=== PATIENT | female | born 1980 | race Caucasian/White ===

== ENCOUNTER 2017-12-17 08:10 | Inpatient (IN) | payer OTHER ==
[2017-12-17 08:33] LABS: ADD MAN DIFF? NO
[2017-12-17 08:35] LABS: WHITE BLOOD COUNT 6.5 10^3/ul (4.8-10.8)
[2017-12-17 08:35] LABS: BASOPHILS % 0.6 % (0.0-2.0); EOSINOPHILS # 0.1 10^3/ul (0.0-0.5); EOSINOPHILS % 0.9 % (0.0-7.0); HEMATOCRIT 38.7 % (37.0-47.0); HEMOGLOBIN 11.5 g/dl (12.0-16.0); LYMPHOCYTES # 2.2 10^3/ul (0.8-2.9); LYMPHOCYTES % 33.5 % (15.0-51.0); MEAN CORPUSCULAR HEMOGLOBIN 22.3 pg (29.0-33.0); MEAN CORPUSCULAR HGB CONC 29.7 g/dl (32.0-37.0); MEAN CORPUSCULAR VOLUME 75.1 fl (82.0-101.0); MEAN PLATELET VOLUME 10.5 fl (7.4-10.4); MONOCYTE # 0.4 10^3/ul (0.3-0.9); MONOCYTES % 6.4 % (0.0-11.0); NEUTROPHIL # 3.8 10^3/ul (1.6-7.5); NEUTROPHILS % 58.3 % (39.0-77.0); PLATELET COUNT 303 10^3/UL (140-415); RED BLOOD COUNT 5.15 10^6/ul (4.20-5.40); RED CELL DISTRIBUTION WIDTH 15.9 % (11.5-14.5)
[2017-12-17 08:53] LABS: ANION GAP 19 (8-16); BLOOD UREA NITROGEN 15 mg/dl (7-20); CALCIUM 9.4 mg/dl (8.4-10.2); CARBON DIOXIDE 23 mmol/L (21-31); CHLORIDE 104 mmol/L (97-110); CHOL/HDL RATIO 3.3 RATIO; CHOLESTEROL 146 mg/dl (100-200); CREATININE 0.91 mg/dl (0.44-1.00); GLUCOSE 118 mg/dl (70-220); HDL CHOLESTEROL 43 mg/dl (34-88); LDL CHOLESTEROL,CALCULATED 80 mg/dl; POTASSIUM 4.3 mmol/L (3.5-5.1); SODIUM 142 mmol/L (135-144); TRIGLYCERIDES 116 mg/dl (0-149)
[2017-12-17 08:55] LABS: INR 0.95; PARTIAL THROMBOPLASTIN TIME 29.9 Sec (25.0-35.0); PROTIME 12.8 Sec (11.9-14.9)
[2017-12-17 09:05] LABS: TROPONIN-I < 0.010 ng/ml (0.000-0.120)
[2017-12-17] MEDS: ASPIRIN 81 MG TAB PO (09:10)
[2017-12-17 09:22] LABS: HEMOGLOBIN A1C 5.7 % (0-5.9)
[2017-12-17] MEDS ORDERED: ACETAMINOPHEN 325 MG TAB PO ×2 (09:30→11:00)
[2017-12-17] MEDS ORDERED: ONDANSETRON 4 MG INJ IV ×2 (09:30→11:00)
[2017-12-17 09:50] LABS: ADD UMIC YES; UR ASCORBIC ACID NEGATIVE (NEGATIVE); UR BACTERIA FEW /HPF (NONE SEEN); UR BILIRUBIN (Dip) NEGATIVE (NEGATIVE); UR BLOOD (Dip) NEGATIVE (NEGATIVE); UR CLARITY SLIGHTLY CLOUDY (CLEAR); UR COLOR YELLOW (YELLOW); UR GLUCOSE (Dip) NEGATIVE (NEGATIVE); UR KETONES (Dip) NEGATIVE (NEGATIVE); UR LEUKOCYTE ESTERASE (Dip) NEGATIVE Leu/ul (NEGATIVE); UR NITRITE (Dip) NEGATIVE (NEGATIVE); UR RBC 1 /HPF (0-5); UR SPECIFIC GRAVITY (Dip) 1.019 (1.003-1.030); UR SQUAMOUS EPITHELIAL CELL FEW /HPF (FEW); UR TOTAL PROTEIN (Dip) 1+ mg/dl (NEGATIVE); UR UROBILINOGEN (Dip) NEGATIVE (NEGATIVE); UR WBC 4 /HPF (0-5)
[2017-12-17 09:56] LABS: AMPHETAMINE/METHAMPHETAMINE Negative (NEGATIVE); BARBITURATES Negative (NEGATIVE); BENZODIAZEPINES Negative (NEGATIVE); CANNABINOIDS Negative (NEGATIVE); COCAINE Negative (NEGATIVE); OPIATES Negative (NEGATIVE)
[2017-12-17] MEDS ORDERED: ACETAMINOPHEN 650 MG SUPP PR (11:00)
[2017-12-17] MEDS ORDERED: HYDROCODONE/APAP (5/325) TAB PO ×2 (11:00)
[2017-12-17] MEDS ORDERED: LORAZEPAM 2 MG INJ IV (11:00)
[2017-12-17] MEDS ORDERED: DOCUSATE SODIUM 100 MG CAP PO (11:00)
[2017-12-17] MEDS ORDERED: morphine 2 MG INJ IV (11:00)
[2017-12-17] MEDS ORDERED: MAGNESIUM HYDROXIDE 30ML CUP PO (11:00)
[2017-12-17] MEDS: IBUPROFEN 600 MG TAB PO ×3 (11:00→21:23)
[2017-12-17] MEDS ORDERED: BISACODYL 10 MG SUPP PR (11:00)
[2017-12-17] MEDS ORDERED: NACL 0.9% 3 ML SYG IV (11:00)
[2017-12-17] MEDS: ATORVASTATIN 40 MG TAB PO (21:22)
[2017-12-17] MEDS: LEVETIRACETAM 500 MG (PMX) 100 ML IVPB (21:22)
[2017-12-17] MEDS: LAMOTRIGINE 100 MG TAB PO (21:22)
[2017-12-17] MEDS: LAMOTRIGINE 25 MG TAB PO (21:23)
[2017-12-18] MEDS: PANTOPRAZOLE 40 MG INJ IV (05:30)
[2017-12-18] MEDS: IBUPROFEN 600 MG TAB PO ×4 (05:30→23:18)
[2017-12-18 05:43] LABS: ADD MAN DIFF? NO
[2017-12-18 05:53] LABS: WHITE BLOOD COUNT 7.7 10^3/ul (4.8-10.8)
[2017-12-18 05:53] LABS: BASOPHILS % 0.5 % (0.0-2.0); EOSINOPHILS # 0.1 10^3/ul (0.0-0.5); EOSINOPHILS % 1.4 % (0.0-7.0); HEMATOCRIT 35.3 % (37.0-47.0); HEMOGLOBIN 10.5 g/dl (12.0-16.0); LYMPHOCYTES # 3.1 10^3/ul (0.8-2.9); LYMPHOCYTES % 39.7 % (15.0-51.0); MEAN CORPUSCULAR HEMOGLOBIN 22.2 pg (29.0-33.0); MEAN CORPUSCULAR HGB CONC 29.7 g/dl (32.0-37.0); MEAN CORPUSCULAR VOLUME 74.6 fl (82.0-101.0); MEAN PLATELET VOLUME 10.8 fl (7.4-10.4); MONOCYTE # 0.6 10^3/ul (0.3-0.9); MONOCYTES % 7.5 % (0.0-11.0); NEUTROPHIL # 3.9 10^3/ul (1.6-7.5); NEUTROPHILS % 50.6 % (39.0-77.0); PLATELET COUNT 288 10^3/UL (140-415); RED BLOOD COUNT 4.73 10^6/ul (4.20-5.40)
[2017-12-18 06:06] LABS: HEMOGLOBIN A1C 5.7 % (0-5.9)
[2017-12-18 06:28] LABS: ALANINE AMINOTRANSFERASE 18 IU/L (13-69); ALBUMIN 3.8 g/dl (3.3-4.9); ALBUMIN/GLOBULIN RATIO 1.18; ALKALINE PHOSPHATASE 71 IU/L (42-121); ANION GAP 13 (8-16); ASPARTATE AMINO TRANSFERASE 15 IU/L (15-46); BILIRUBIN,INDIRECT 0.3 mg/dl (0-1.1); BILIRUBIN,TOTAL 0.3 mg/dl (0.2-1.3); BLOOD UREA NITROGEN 16 mg/dl (7-20); CALCIUM 8.9 mg/dl (8.4-10.2); CARBON DIOXIDE 28 mmol/L (21-31); CHLORIDE 104 mmol/L (97-110); CHOL/HDL RATIO 3.8 RATIO; CHOLESTEROL 131 mg/dl (100-200); CREATININE 0.88 mg/dl (0.44-1.00); GLUCOSE 95 mg/dl (70-220); HDL CHOLESTEROL 34 mg/dl (34-88); LDL CHOLESTEROL,CALCULATED 77 mg/dl; MAGNESIUM 2.2 mg/dl (1.7-2.5); PHOSPHORUS 4.4 mg/dl (2.5-4.9); POTASSIUM 3.9 mmol/L (3.5-5.1); SODIUM 141 mmol/L (135-144); TRIGLYCERIDES 100 mg/dl (0-149)
[2017-12-18 06:32] LABS: FREE THYROXINE INDEX (Calc) 2.18 ug/ml (0.65-3.89); T3 UPTAKE 34.6 % (23.5-40.5); T4 (THYROXINE) 6.3 ug/dl (5.5-11.0)
[2017-12-18] MEDS ORDERED: PANTOPRAZOLE (EC) 40 MG TAB PO (07:00)
[2017-12-18] MEDS: ASPIRIN 81 MG TAB PO (08:59)
[2017-12-18] MEDS: LAMOTRIGINE 100 MG TAB PO ×2 (08:59→20:15)
[2017-12-18] MEDS: MEMANTINE 5 MG TAB PO (08:59)
[2017-12-18] MEDS: ESCITALOPRAM 10 MG TAB PO (08:59)
[2017-12-18] MEDS: LAMOTRIGINE 25 MG TAB PO ×2 (08:59→20:15)
[2017-12-18] MEDS: LEVETIRACETAM 500 MG (PMX) 100 ML IVPB ×2 (09:03→20:47)
[2017-12-18] MEDS ORDERED: morphine LIQ (10 MG/5 ML) CUP PO (15:00)
[2017-12-18] MEDS: METOPROLOL 25 MG TAB PO (20:15)
[2017-12-18] MEDS: ATORVASTATIN 40 MG TAB PO (20:16)
[2017-12-19 06:20] LABS: ADD MAN DIFF? NO
[2017-12-19 06:26] LABS: WHITE BLOOD COUNT 7.8 10^3/ul (4.8-10.8)
[2017-12-19 06:26] LABS: BASOPHILS % 0.5 % (0.0-2.0); EOSINOPHILS # 0.1 10^3/ul (0.0-0.5); EOSINOPHILS % 1.3 % (0.0-7.0); HEMATOCRIT 33.6 % (37.0-47.0); LYMPHOCYTES # 3.3 10^3/ul (0.8-2.9); LYMPHOCYTES % 42.1 % (15.0-51.0); MEAN CORPUSCULAR HEMOGLOBIN 22.3 pg (29.0-33.0); MEAN CORPUSCULAR HGB CONC 29.8 g/dl (32.0-37.0); MEAN CORPUSCULAR VOLUME 74.8 fl (82.0-101.0); MEAN PLATELET VOLUME 11.1 fl (7.4-10.4); MONOCYTE # 0.6 10^3/ul (0.3-0.9); MONOCYTES % 7.8 % (0.0-11.0); NEUTROPHIL # 3.7 10^3/ul (1.6-7.5); PLATELET COUNT 277 10^3/UL (140-415); RED BLOOD COUNT 4.49 10^6/ul (4.20-5.40); RED CELL DISTRIBUTION WIDTH 16.4 % (11.5-14.5)
[2017-12-19] MEDS: IBUPROFEN 600 MG TAB PO ×3 (06:33→17:00)
[2017-12-19] MEDS: PANTOPRAZOLE 40 MG INJ IV (06:33)
[2017-12-19 07:00] LABS: PHOSPHORUS 4.7 mg/dl (2.5-4.9)
[2017-12-19 07:00] LABS: MAGNESIUM 2.2 mg/dl (1.7-2.5)
[2017-12-19 07:11] LABS: ANION GAP 14 (8-16); BLOOD UREA NITROGEN 18 mg/dl (7-20); CALCIUM 8.9 mg/dl (8.4-10.2); CARBON DIOXIDE 26 mmol/L (21-31); CHLORIDE 106 mmol/L (97-110); CREATININE 0.94 mg/dl (0.44-1.00); GLUCOSE 86 mg/dl (70-220); POTASSIUM 4.1 mmol/L (3.5-5.1); SODIUM 142 mmol/L (135-144)
[2017-12-19] MEDS: ESCITALOPRAM 10 MG TAB PO (08:46)
[2017-12-19] MEDS: MEMANTINE 5 MG TAB PO (08:46)
[2017-12-19] MEDS: ASPIRIN 81 MG TAB PO (08:46)
[2017-12-19] MEDS: LAMOTRIGINE 100 MG TAB PO (08:46)
[2017-12-19] MEDS: LAMOTRIGINE 25 MG TAB PO (08:46)
[2017-12-19] MEDS: METOPROLOL 25 MG TAB PO (08:47)
[2017-12-19] MEDS: NIFEdipine (XL) 90 MG TAB PO (08:47)
[2017-12-19] MEDS: LEVETIRACETAM 500 MG (PMX) 100 ML IVPB (08:47)
== END 2017-12-19 17:25 | disposition home or self-care (01) | DRG 101 ==
LOC: E/R 08:10 → 6WM 09:14
DX: G40.909 Epilepsy, unspecified, not intractable, without status epilepticus (principal); I69.254 Hemiplegia and hemiparesis following other nontraumatic intracranial hemorrhage affecting left non-dominant side; I10 Essential (primary) hypertension; F32.9 Major depressive disorder, single episode, unspecified; Z68.30 Body mass index [BMI] 30.0-30.9, adult; G93.89 Other specified disorders of brain; E78.5 Hyperlipidemia, unspecified; D50.9 Iron deficiency anemia, unspecified; E66.9 Obesity, unspecified
CPT/HCPCS: 70450; 70551; 71045; 80048; 80053; 80061; 80307; 81001; 81025; 82962; 83036; 83735; 84100; 84436; 84443; 84479; 84484; 85025; 85610; 85730; 92610; 93005; 93306; 93880; 95819; 97116; 97162; 97165; 97530; 99285-25